=== PATIENT | female | born 1980 | race Caucasian/White ===

== ENCOUNTER 2017-10-19 17:15 | Emergency (ER) | payer MEDICAID ==
[2017-10-19] MEDS: LIDOCAINE 1% (MDV) 10 ML INJ INFIL (18:25)
[2017-10-19] MEDS: LIDOCAINE 1% (MDV) 20 ML INJ INFIL ×2 (18:25)
== END 2017-10-19 18:29 | disposition home or self-care (01) ==
LOC: FTE 17:15
DX: K64.5 Perianal venous thrombosis (principal)
CPT/HCPCS: 10060; 99283-25